=== PATIENT | male | born 1975 | race Caucasian/White ===

== ENCOUNTER 2018-10-11 00:07 | Emergency (ER) | payer MEDICAID ==
[~2018-10-11] VITALS: Ht 177.8 cm; Wt 77.1 kg
--- NOTE | 2018-10-11 01:06 | NUR ---
Dr. Suarez at bedside for MSE.
[2018-10-11] MEDS ORDERED: MORPHINE SULFATE 4 MG/1 ML DISP.SYRIN IV ONE ×2 (01:15→02:00)
[2018-10-11] MEDS ORDERED: ONDANSETRON IV *ER 4 MG/2 ML VIAL IV ONE ×2 (01:15→02:45)
[2018-10-11] MEDS ORDERED: IV NORMAL SALINE 1000 ML BAG IV ONE (01:15)
[2018-10-11] MEDS ORDERED: ONDANSETRON 4 MG/2 ML VIAL ONE ×2 (01:25→02:38)
[2018-10-11] MEDS ORDERED: MORPHINE SULFATE 4 MG/1 ML DISP.SYRIN ONE ×2 (01:26→01:58)
[2018-10-11 01:30] LABS: BASOPHILS # (AUTO) 0.1 K/uL (0.0-8.0); BASOPHILS % (AUTO) 1.1 % (0.0-2.0); EOSINOPHILS # (AUTO) 0.3 K/uL (0.0-0.7); HEMATOCRIT 45.4 % (36.7-47.1); HEMOGLOBIN 15.3 g/dL (12.5-16.3); LYMPHOCYTES # (AUTO) 4.3 K/uL (20.0-40.0); LYMPHOCYTES % (AUTO) 43.7 % (20.5-51.5); MEAN CORPUSCULAR HEMOGLOBIN 27.9 uug (23.8-33.4); MEAN CORPUSCULAR HGB CONC 34 g/dL (32.5-36.3); MEAN CORPUSCULAR VOLUME 82.7 fL (73.0-96.2); MONOCYTES # (AUTO) 0.9 K/uL (2.0-10.0); MONOCYTES % (AUTO) 9.7 % (0.0-11.0); NEUTROPHILS # (AUTO) 4.2 K/uL (1.8-8.9); NEUTROPHILS % (AUTO) 42.5 % (38.5-71.5); PLATELET COUNT (AUTO) 320 K/uL (152-348); WHITE BLOOD COUNT (AUTO) 9.8 K/uL (3.6-10.2)
[2018-10-11 01:38] LABS: *BILIRUBIN,URIN NEGATIVE (NEGATIVE); *BLOOD, URINE NEGATIVE (NEGATIVE); *COLOR,URINE YELLOW (YELLOW); *KETONES,URINE NEGATIVE (NEGATIVE); *UROBILINOGEN,URINE 0.2 E.U./dl (NORMAL); LEUKOCYTE ESTERASE ,URINE NEGATIVE (NEGATIVE); NITRITE, URINE NEGATIVE (NEGATIVE); PH,URINE 5.5 (5.0-8.0); UGLUCOSE NEGATIVE (NEGATIVE)
[2018-10-11 01:38] LABS: POTASSIUM 3.7 mmol/L (3.5-5.1)
[2018-10-11 01:39] LABS: *CLARITY,URINE CLEAR (CLEAR)
[2018-10-11 01:46] LABS: BILIRUBIN,DIRECT 0.1 mg/dL (0.0-0.2); BILIRUBIN,TOTAL 0.3 mg/dL (0.2-1.0); TOTAL PROTEIN, SERUM 7.6 g/dL (6.4-8.2)
--- NOTE | 2018-10-11 01:50 | NUR ---
Xray at bedside for MSE.
--- NOTE | 2018-10-11 02:04 | NUR ---
Ultrasound at bedside.
[2018-10-11] MEDS ORDERED: HYDROMORPHONE 1 MG/1 ML DISP.SYRIN ONE (02:37)
[2018-10-11] MEDS ORDERED: HYDROMORPHONE 1 MG/1 ML DISP.SYRIN IV ONE (02:45)
--- NOTE | 2018-10-11 02:54 | NUR ---
MUKESH LOVE at bedside.
[2018-10-11 03:17] VITALS: BP 135/90
--- NOTE | 2018-10-11 03:19 | NUR ---
Patient discharged to home in stable conditon. Written and verbal after care instructions given. Patient verbalizes understanding of instructions. IV discontinued, name tag removed. Patient ambulated out of ER with steady gait. All belongings with patient.
== END 2018-10-11 03:20 | disposition home or self-care (01) ==
LOC: ER 00:07
DX: K80.50 Calculus of bile duct without cholangitis or cholecystitis without obstruction (principal); F12.10 Cannabis abuse, uncomplicated; Z88.0 Allergy status to penicillin
CPT/HCPCS: 36415; 71045; 76705; 80048; 80076; 81001; 83690; 85025; 93005; 96361; 96374; 96375; 96376; 99284; J1170; J2270 ×2; J2405 ×2; A4663; J7030

== ENCOUNTER 2018-12-18 19:37 | Emergency (ER) | payer SELFPAY ==
[~2018-12-18] VITALS: Ht 177.8 cm; Wt 77.1 kg
--- NOTE | 2018-12-18 20:00 | NUR ---
Dr. Avila at bedside for MSE.
[2018-12-18] MEDS ORDERED: SULFAMETH/TRIMETH 800/160 MG TABLET ONE (20:09)
--- NOTE | 2018-12-18 20:09 | NUR ---
Patient discharged to home in stable conditon. Written and verbal after care instructions given. Patient verbalizes understanding of instructions. Pt ambulated out of ER with steady gait, no acute signs of distress, VSS, all belongings taken.
[2018-12-18 20:12] VITALS: BP 149/93
[2018-12-18] MEDS ORDERED: SULFAMETH/TRIMETH 800/160 MG TABLET PO ONE (20:15)
== END 2018-12-18 20:12 | disposition home or self-care (01) ==
LOC: ER 19:39
DX: B95.8 Unspecified staphylococcus as the cause of diseases classified elsewhere (principal); F17.200 Nicotine dependence, unspecified, uncomplicated; Z88.0 Allergy status to penicillin; F12.10 Cannabis abuse, uncomplicated
CPT/HCPCS: A4663

== ENCOUNTER 2019-04-26 00:10 | Emergency (ER) | END 2019-04-26 01:14 | disposition home or self-care (01) | DX: T24.131A Burn of first degree of right lower leg, initial encounter (principal); F12.10 Cannabis abuse, uncomplicated; Z88.0 Allergy status to penicillin; X11.8XXA Contact with other hot tap-water, initial encounter; Y93.89 Activity, other specified; Y92.89 Other specified places as the place of occurrence of the external cause; Y99.8 Other external cause status | CPT/HCPCS: 16020; 96372; 99284; J0696; J3490 ==

== ENCOUNTER 2019-05-23 09:12 | Emergency (ER) | payer SELFPAY ==
[~2019-05-23] VITALS: Ht 177.8 cm; Wt 77.1 kg
[2019-05-23] MEDS ORDERED: TETRACAINE HCL 0.5% OPHT DROP 2 ML BOTTLE ONE (09:26)
[2019-05-23] MEDS ORDERED: FLUORESCEIN SODIUM 1 MG STRIP ONE (09:27)
--- NOTE | 2019-05-23 09:58 | NUR ---
Patient discharged to home in stable conditon. Written and verbal after care instructions given. Patient verbalizes understanding of instructions.pt walks in steady gait. pt with so, going to directly to Dr. rodriguez, chargemaster specialist per dr. nolen arrangement with dr. rodriguez
[2019-05-25] MEDS ORDERED: TETRACAINE HCL 0.5% OPHT DROP 2 ML BOTTLE OP ONE (08:44)
[2019-05-25] MEDS ORDERED: FLUORESCEIN SODIUM 1 MG STRIP OP ONE (08:45)
== END 2019-05-23 10:02 | disposition home or self-care (01) ==
LOC: ER 09:12
DX: T15.02XA Foreign body in cornea, left eye, initial encounter (principal); F12.10 Cannabis abuse, uncomplicated; Z88.0 Allergy status to penicillin; X58.XXXA Exposure to other specified factors, initial encounter; Y93.89 Activity, other specified; Y92.89 Other specified places as the place of occurrence of the external cause; Y99.8 Other external cause status
CPT/HCPCS: A4663

== ENCOUNTER 2019-08-10 05:51 | Emergency (ER) | payer SELFPAY ==
[~2019-08-10] VITALS: Ht 177.8 cm; Wt 77.1 kg
--- NOTE | 2019-08-10 06:02 | NUR ---
Dr. Zambrano at bedside for MSE.
--- NOTE | 2019-08-10 06:03 | NUR ---
Pt presentes to ER in stable condition w/steady gait c/o face pain due to chin absess. Patient is AOx4, speaking in complete sentences, speech is clear. Patient is able to follow /comprehend directions. Gait is stable. No cardiovascular distress noted. Rate and rhythm are regular. No CP. No respiratory distress noted. Respirations even & unlabored with symmetrical chest rise. No adventitious sounds noted. Patient is on bed. Bed is in lowest position. Siderails are up x 2. Call light within reach. I will continue to monitor accordingly.
--- NOTE | 2019-08-10 06:10 | NUR ---
I&D setup ready in room for chin absess drainage per OR MD order.
--- NOTE | 2019-08-10 06:12 | NUR ---
Abcess was drained, antibiotic applied to chin and covered with sterile gauze performed by Dr Zambrano.
[2019-08-10] MEDS ORDERED: LIDOCAINE 1%-EPI 1:100,000 20 ML VIAL TP ONE (06:15)
--- NOTE | 2019-08-10 06:15 | NUR ---
Patient discharged to home in stable condition w /steady gait,V/S stable. Written and verbal after care instructions given. Patient verbalizes understanding of instructions. Stressed follow up or return to ER in 48hrs or for worsening s/s.All belongings with patient.
[2019-08-10] MEDS ORDERED: IBUPROFEN 600 MG TABLET ONE (06:25)
[2019-08-10] MEDS ORDERED: NEOMY/BACITRA/POLYMYXIN B OINT UD PACKET TP ONE ×2 (06:29→06:30)
[2019-08-10] MEDS ORDERED: IBUPROFEN 600 MG TABLET PO ONE (06:30)
[2019-08-10 07:04] VITALS: BP 135/83
== END 2019-08-10 06:15 | disposition home or self-care (01) ==
LOC: ER 05:53
DX: L02.01 Cutaneous abscess of face (principal); Z87.442 Personal history of urinary calculi; Z88.0 Allergy status to penicillin; F17.210 Nicotine dependence, cigarettes, uncomplicated
CPT/HCPCS: 10060; 99282; J3490; A4663